=== PATIENT | female | born 1985 | race Caucasian/White ===

== ENCOUNTER 2018-07-13 18:25 | Emergency (ER) | payer OTHER ==
[~2018-07-13] VITALS: Ht 154.9 cm; Wt 84.4 kg
[2018-07-13 18:40] VITALS: BP 134/90
[2018-07-13] MEDS ORDERED: KETOROLAC 30 MG/ML VIAL IM ONE (19:15)
[2018-07-13] MEDS ORDERED: DIAZEPAM 5 MG TAB PO ONE (19:15)
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
[2018-07-13 20:11] VITALS: BP 129/88
--- NOTE | 2018-07-13 20:13 | NUR ---
Patient discharged with v/s stable. Written and verbal after care instructions given and explained. Patient alert, oriented and verbalized understanding of instructions. Ambulatory with steady gait. All questions addressed prior to discharge. ID band removed. Patient advised to follow up with PMD. Rx of VALIUM, NAPROSYN given. Patient educated on indication of medication including possible reaction and side effects. Opportunity to ask questions provided and answered.
== END 2018-07-13 20:12 | disposition home or self-care (01) ==
LOC: MED 18:25
DX: S76.011A Strain of muscle, fascia and tendon of right hip, initial encounter (principal); S00.83XA Contusion of other part of head, initial encounter; S20.219A Contusion of unspecified front wall of thorax, initial encounter; I10 Essential (primary) hypertension; V49.49XA Driver injured in collision with other motor vehicles in traffic accident, initial encounter; W22.10XA Striking against or struck by unspecified automobile airbag, initial encounter; Y93.89 Activity, other specified; Y92.89 Other specified places as the place of occurrence of the external cause; Y99.8 Other external cause status
CPT/HCPCS: 70100; 73502; 96372; 99283; J1885

== ENCOUNTER 2019-04-05 10:44 | Emergency (ER) | payer OTHER ==
[~2019-04-05] VITALS: Ht 154.9 cm; Wt 81.6 kg
[2019-04-05 10:55] VITALS: BP 175/98
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
[2019-04-05] MEDS ORDERED: KETOROLAC 60 MG/2 ML VIAL IM ONE (11:20)
--- NOTE | 2019-04-05 11:29 | NUR ---
LAB AT BEDSIDE
[2019-04-05 11:58] LABS: BASOPHILS % (AUTO) 0.4 % (0.0-2.0); EOSINOPHILS # (AUTO) 0.1 K/uL (0-0.4); HEMATOCRIT 37.6 % (36-48); HEMOGLOBIN 12.7 g/dL (12.0-16.0); LYMPHOCYTES # (AUTO) 1.1 K/uL (2.5-16.5); LYMPHOCYTES % (AUTO) 14.9 % (20.5-51.1); MEAN CORPUSCULAR HEMOGLOBIN 29 pg (27-31); MEAN CORPUSCULAR HGB CONC 34 g/dL (33-37); MONOCYTES # (AUTO) 0.5 K/uL (0.8-1.0); MONOCYTES % (AUTO) 6.9 % (1.7-9.3); NEUTROPHILS # (AUTO) 5.8 K/uL (1.8-7.7); NEUTROPHILS % (AUTO) 76.8 % (42.2-75.2); PLATELET COUNT (AUTO) 292 K/uL (140-450); RED BLOOD CELL COUNT(AUTO) 4.32 MIL/uL (4.20-5.40); RED CELL DISTRIBUTION WIDTH 14.1 % (11.6-13.7); WHITE BLOOD COUNT (AUTO) 7.5 K/uL (4.8-10.8)
[2019-04-05 12:09] LABS: ANION GAP 13.2 (8-16); CARBON DIOXIDE 29.1 mmol/L (21-32); CREATININE 0.8 mg/dL (0.6-1.3); POTASSIUM 3.3 mmol/L (3.5-5.1)
[2019-04-05 12:19] LABS: COLOR,URINE YELLOW (YELLOW)
[2019-04-05 12:20] LABS: PH,URINE 6.5 (5.0-9.0)
[2019-04-05 12:21] LABS: BILIRUBIN,URINE NEGATIVE (NEGATIVE); BLOOD, URINE NEGATIVE (NEGATIVE); NITRITE, URINE NEGATIVE (NEGATIVE); UGLUCOSE NEGATIVE (NEGATIVE)
[2019-04-05 12:23] LABS: APPEARANCE,URINE SLIGHTLY HAZY (CLEAR); LEUKOCYTE ESTERASE ,URINE TRACE (NEGATIVE); RBC,URINE 0-5 /HPF (0-5)
[2019-04-05 12:24] LABS: ALBUMIN 3.3 g/dL (3.4-5.0); TOTAL BILIRUBIN 0.2 mg/dL (0.0-1.0)
[2019-04-05 12:25] LABS: YEAST,URINE Few /HPF (None Seen)
--- NOTE | 2019-04-05 13:35 | NUR ---
PT STATES DECREASE IN PAIN AT THIS TIME. PT LAYING IN BED IN COMFORTABLE POSITION, BED LOCKED AND IN LOW POSITION. VISIBLE RISE AND FALL OF CHEST. VSS.
[2019-04-05 14:23] VITALS: BP 142/84
--- NOTE | 2019-04-05 14:23 | NUR ---
Patient discharged with v/s stable. Written and verbal after care instructions given and explained. Patient alert, oriented and verbalized understanding of instructions. Ambulatory with steady gait. All questions addressed prior to discharge. ID band removed. Patient advised to follow up with PMD. Rx of ZOFRAN, MACROBID, NORCO given. Patient educated on indication of medication including possible reaction and side effects. Opportunity to ask questions provided and answered.
--- NOTE | 2019-04-05 14:25 | NUR ---
WAITING IN LOBBY FOR DR. LEON
== END 2019-04-05 14:23 | disposition home or self-care (01) ==
LOC: MED 10:44
DX: K85.90 Acute pancreatitis without necrosis or infection, unspecified (principal); N39.0 Urinary tract infection, site not specified; I10 Essential (primary) hypertension; Z90.49 Acquired absence of other specified parts of digestive tract
CPT/HCPCS: 36415; 76705; 80053; 81001; 81025; 83690; 85025; 87086; 96372; 99284; J1885; Q0092

== ENCOUNTER 2019-05-22 15:59 | Emergency (ER) | payer OTHER ==
[~2019-05-22] VITALS: Ht 154.9 cm; Wt 85.3 kg
[2019-05-22 16:11] VITALS: BP_SYST 185; BP_SYST 192; BP_DIAS 118; BP_DIAS 123
--- NOTE | 2019-05-22 16:16 | NUR ---
PT TO ER LOBBY. PT ALERT AND AWAKE
--- NOTE | 2019-05-22 16:33 | NUR ---
AMB TO BED 02 WITH EVEN STEADY GAIT. URINE CUP PROVIDED TO PT.
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
--- NOTE | 2019-05-22 17:06 | NUR ---
ULTRASOUND AT BEDSIDE
[2019-05-22 17:49] LABS: BILIRUBIN,URINE NEGATIVE (NEGATIVE); BLOOD, URINE 3+ (NEGATIVE); LEUKOCYTE ESTERASE ,URINE NEGATIVE (NEGATIVE); NITRITE, URINE NEGATIVE (NEGATIVE); PH,URINE 6.5 (5.0-9.0); UGLUCOSE NEGATIVE (NEGATIVE)
[2019-05-22 17:52] LABS: APPEARANCE,URINE BLOODY (CLEAR); COLOR,URINE PINK (YELLOW)
--- NOTE | 2019-05-22 18:27 | NUR ---
PT RESTING COMFORTABLY, GAVE PT A BLANKET, INFORMED THAT WE ARE WAITING FOR TEST RESULTS.
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
[2019-05-22 19:04] LABS: RBC,URINE TOO NUMEROUS TO COUN /HPF (0-5); WBC,URINE NONE SEEN /HPF (0-5)
[2019-05-22 19:07] VITALS: BP 168/84
== END 2019-05-22 19:07 | disposition home or self-care (01) ==
LOC: MED 15:59
DX: D25.1 Intramural leiomyoma of uterus (principal); I10 Essential (primary) hypertension
CPT/HCPCS: 36415; 76856; 81001; 81025; 84702; 99284; Q0092